=== PATIENT | male | born 1950 | race Caucasian/White ===

== ENCOUNTER 2020-08-04 19:01 | Emergency (ER) | payer MEDICARE, OTHER, SELFPAY ==
--- NOTE | ~2020-08-04 | XR_ITS ---
EXAMINATION: XR finger 3rd RT min 2V EXAM DATE: 08/04/2020 19:23 INDICATION: Initial encounter following injury, with pain of the right 3rd finger. Smashed. TECHNIQUE: 3rd finger frontal, lateral and oblique projections obtained and reviewed. There is no prior study for comparison. FINDINGS: There is acute posttraumatic fracture of the right 3rd tuft with comminution, minimal disp lacement. There is evidence of laceration. Soft tissue swelling. Uncertain whether or not this is joanne sed for open fracture, clinical correlation. No other acute findings. IMPRESSION: Acute right 3rd tuft fractures, soft tissue laceration. Reviewed, dictated and finalized at location A.
[2020-08-04 19:08] VITALS: BP 148/92; PULSE 85; RESP 16; TEMP 37.2; O2SAT 99
--- NOTE | 2020-08-04 19:08 | ED.GENADULT ---
HPI - General Adult General Chief complaint: Wound/Laceration Stated complaint: cut to right index finger Time Seen by Provider: 08/04/20 19:08 Source: patient Mode of arrival: ambulatory Limitations: no limitations History of Present Illness HPI narrative: 69-year-old male patient presents to the [facility] with complaints of a laceration to the right middle finger. Patient is right-hand dominant. Patient states he smashed the middle finger in between 2 concrete blocks today. Patient states he is updated on his tetanus within the last 5 years. Related Data Home Medications Medication Instructions Recorded Confirmed lisinopril 10 mg PO DAILY 08/04/20 08/04/20 metoprolol tartrate 50 mg PO Q12H 08/04/20 08/04/20 Allergies Allergy/AdvReac Type Severity Reaction Status Date / Time No Known Allergies Allergy Unverified 02/14/19 16:47 Review of Systems Review of Systems: Narrative: CONSTITUTIONAL: Denies fever, chills, or sweats. EYES: Denies visual changes, redness, or discharge. ENT: Denies rhinorrhea, congestion, sore throat, or otalgia. CARDIOVASCULAR: Denies chest pain, palpitations, or edema. RESPIRATORY: Denies cough or dyspnea. GASTROINTESTINAL: Denies abdominal pain, nausea, vomiting, or diarrhea. GENITOURINARY: Denies dysuria or hematuria. SKIN: Denies rash or itching. Positive laceration to right middle finger MUSCULOSKELETAL: Denies back pain, joint pain, or myalgia. NEUROLOGIC: Denies headache, numbness, or weakness. PSYCHIATRIC: Denies anxiety or depression. [facility] Family History Family History Mother Hypertension Family history of diabetes mellitus in first degree relative Father Family history of coronary artery disease, Onset Age: 82 Patient's father is Comments At the time of my signature I agree with nursing past medical history, surgical, social, and family history. There is no relevant family history pertinent to the presenting complaint. Exam Narrative: Exam Narrative: GENERAL: Well-appearing, well-nourished, and in no acute distress. HEAD: Normocephalic, atraumatic. EYES: PERRLA and EOMI. ENT: Nares clear, no rhinorrhea or epistaxis. Mucous membranes moist. NECK: Supple. No lymphadenopathy CHEST: Clear to auscultation. No respiratory distress. HEART: Regular rate and rhythm. No murmur heard. Normal peripheral pulses. ABDOMEN: Soft, nontender, nondistended, normal active bowel sounds. EXTREMITIES: Normal range of motion. No edema. SKIN: Warm, dry, no rash. Patient has a laceration across the nailbed on the right middle finger. The distal end of the right middle finger is smashed with laceration to the palm side of the distal tip of the finger. Patient does have swelling from the distal tip of the middle finger that extends down to the PIP joint. NEURO: No focal deficits. Alert and oriented x3. Course Reevaluation(s) Reevaluation #1: Reevaluated patient. Discussed with him that I did review his x-ray and it does appear that he has a fracture to the distal portion of the middle finger along with an open wound and nail involvement. Discussed with him that based on this we will need to send him over to the emergency department for a plastic surgeon consult and repair. Discussed with patient that the only one that has acid surgeon available on the side [facility] the the [facility] is [facility]. Patient states he is okay with going there and agrees with this plan of care. Date: 08/04/20 Time: 19:30 Vital Signs Vital signs: Vital Signs Temperature 37.2 C 08/04/20 19:08 Pulse Rate 85 08/04/20 19:08 Respiratory Rate 16 08/04/20 19:08 Blood Pressure 148/92 H 08/04/20 19:08 Pulse Oximetry 99 08/04/20 19:08 Temperature 37.2 C 08/04/20 19:08 Pulse Rate 85 08/04/20 19:08 Respiratory Rate 16 08/04/20 19:08 Blood Pressure 148/92 H 08/04/20 19:08 Pulse Oximetry 99 08/04/20 19:
== END 2020-08-04 19:40 | disposition short-term general hospital (02) ==
PROVIDERS: Emergency Provider Nurse Practitioner Family
DX: S62.652B Nondisplaced fracture of middle phalanx of right middle finger, initial encounter for open fracture (principal); X58.XXXA Exposure to other specified factors, initial encounter; I10 Essential (primary) hypertension
CPT/HCPCS: 73140; 99213; G0463

== ENCOUNTER 2020-08-04 20:16 | Emergency (ER) | payer MEDICARE, OTHER, SELFPAY ==
[2020-08-04 20:20] VITALS: BP 186/87; PULSE 75; RESP 18; TEMP 36.3; O2SAT 99
[2020-08-04] MEDS: LIDOCAINE HCL 1% LOCAL INJ 20 ML VIAL (21:03)
--- NOTE | 2020-08-04 21:04 | ED.GENADULT ---
HPI - General Adult General Chief complaint: Extremity Injury, Upper <Chaitanya Crocker PA-C Last Filed: 08/04/20 21:15> Stated complaint: finger injury <UYEN Lechuga Last Filed: 08/04/20 21:15> Time Seen by Provider: 08/04/20 20:32 <UYEN Lechuga Last Filed: 08/04/20 21:15> Source: patient and family <UYEN Lechuga Last Filed: 08/04/20 21:15> Mode of arrival: ambulatory <UYEN Lechuga Last Filed: 08/04/20 21:15> Limitations: no limitations <UYEN Lechuga Last Filed: 08/04/20 21:15> History of Present Illness HPI narrative: Patient is a 69-year-old male who presents with crush injury to the right middle phalanx distal tip caught the finger between 2 cinderblocks evaluated at urgent care sent for evaluation to the ER patient notes minimal discomfort involving the distal tip patient notes his tetanus to be up-to-date patient was found to have an open fracture with laceration and damage to the mid nailbed <Chaitanya Crocker PA-C Last Filed: 08/04/20 21:15> Related Data Home medications: Home Medications Medication Instructions Recorded Confirmed lisinopril 10 mg PO DAILY 08/04/20 08/04/20 metoprolol tartrate 50 mg PO Q12H 08/04/20 08/04/20 <UYEN Lechuga Last Filed: 08/04/20 21:15> Allergies/adverse reactions: Allergies Allergy/AdvReac Type Severity Reaction Status Date / Time No Known Allergies Allergy Unverified 02/14/19 16:47 <UYEN Lechuga Last Filed: 08/04/20 21:15> Review of Systems Review of Systems: All systems reviewed & are unremarkable except as noted in HPI and below <UYEN Lechuga Last Filed: 08/04/20 21:15> PMFSH Family History Family History: Family History Mother Hypertension Family history of diabetes mellitus in first degree relative Father Family history of coronary artery disease, Onset Age: 82 Patient's father is <UYEN Lechuga Last Filed: 08/04/20 21:15> Exam Narrative: Exam Narrative: GENERAL: Well-appearing, well-nourished, and in no acute distress. HEAD: Normocephalic, atraumatic. EYES: PERRLA and EOMI. ENT: Nares clear, no rhinorrhea or epistaxis. Mucous membranes moist. EXTREMITIES: Normal range of motion. No edema. SKIN: Warm, dry, no rash. Patient with transverse laceration across the mid nailbed extending to the subcutaneous tissues. Half centimeter linear laceration palmar aspect distal phalanx NEURO: No focal deficits. Alert and oriented x3. Neurovascularly intact. Capillary refill less than 2 seconds PSYCH: Normal mood and affect. <Chaitanya Crocker PA-C - Last Filed: 08/04/20 21:15> Course Course Emergency Course: Wound closed in the emergency department patient will follow with plastic surgery <UYEN Lechuga Last Filed: 08/04/20 21:15> Consultations Consultation #1: hand surgeon made aware of case <UYEN Lechuga Last Filed: 08/04/20 21:15> Date: 08/04/20 <UYEN Lechuga Last Filed: 08/04/20 21:15> Time: 21:15 <UYEN Lechuga Last Filed: 08/04/20 21:15> Vital Signs Vital signs: Vital Signs Temperature 97.3 F L 08/04/20 20:20 Pulse Rate 75 08/04/20 20:20 Respiratory Rate 18 08/04/20 20:20 Blood Pressure 186/87 H 08/04/20 20:20 Pulse Oximetry 99 08/04/20 20:20 Temperature 97.3 F L 08/04/20 20:20 Pulse Rate 73 08/04/20 21:55 Respiratory Rate 18 08/04/20 21:55 Blood Pressure 163/74 H 08/04/20 21:55 Pulse Oximetry 98 08/04/20 21:55 <UYEN Lechuga Last Filed: 08/04/20 21:15> Vital Signs Temperature 97.3 F L 08/04/20 20:20 Pulse Rate 75 08/04/20 20:20 Respiratory Rate 18 08/04/20 20:20 Blood Pressure 186/87 H 08/04/20 20:20 Pulse Oximetry 99 08/04/20 20:20 Temperature 97.3 F L
[2020-08-04] MEDS: ceFAZolin SODIUM 1 GM VIAL IM (21:54)
[2020-08-04 21:55] VITALS: BP 163/74; PULSE 73; RESP 18; O2SAT 98
== END 2020-08-04 21:55 | disposition home or self-care (01) ==
PROVIDERS: Emergency Provider General Practice
DX: S62.632B Displaced fracture of distal phalanx of right middle finger, initial encounter for open fracture (principal); W23.0XXA Caught, crushed, jammed, or pinched between moving objects, initial encounter
CPT/HCPCS: 11760; 12002; 73140; 96372; 96375; 99283; J0690

== ENCOUNTER 2023-04-11 10:58 | Outpatient (CLI) | payer MEDICARE, OTHER, SELFPAY | END 2023-04-11 10:59 | disposition home or self-care (01) | LOC: ANHAUDASC 11:00 | PROVIDERS: Visit Provider Otolaryngology | DX: H90.3 Sensorineural hearing loss, bilateral (principal) | CPT/HCPCS: 92557; 92567 ==

== ENCOUNTER 2023-07-27 08:00 | Outpatient (RCR) | payer MEDICARE, OTHER, SELFPAY | END 2023-08-16 23:59 | disposition home or self-care (01) | LOC: ANHAUDASC 08:00 | PROVIDERS: Visit Provider Otolaryngology | DX: Z46.1 Encounter for fitting and adjustment of hearing aid (principal) | CPT/HCPCS: 99199; V5261 ==